=== PATIENT | male | born 1950 | race Caucasian/White ===

== ENCOUNTER → 2024-07-03 10:36 | Outpatient (CLI) | payer MEDICARE, OTHER, SELFPAY ==
--- NOTE | 2024-07-03 10:38 | DI.RAD.S_ITS ---
PROCEDURE: FL FLUOROSCOPY >1HR COMPARISON: CT chest dated 03/03/2024. INDICATIONS: sniff test; assess for diaphragm dysfunction TECHNIQUE: Limited ornamental metal erector radiograph was obtained with the patient upright. With the patient standing, frontal fluoroscopy of the diaphragm at rest breathing quietly through an open mouth and then taking few quick short breasts with a closed mouth causing rapid inspiration was performed. Fluoroscopic time: Please see tech notes FINDINGS Unremarkable motion of the diaphragm during inspiration, expiration. Both diaphragms move together. No evidence of paradoxical motion. Motion during quiet breathing and deep breathing appears unremarkable. IMPRESSION: Unremarkable sniff test. Dictated by: Tahir Chang M.D. on 07/06/2024 at 15:22 Approved by: Tahir Chang M.D. on 07/06/2024 at 15:33
== END ==
LOC: RAD 10:38
PROVIDERS: PCP Nurse Practitioner; Referring Provider Internal Medicine; Visit Provider Internal Medicine
DX: R06.02 Shortness of breath (principal)
CPT/HCPCS: 76000

== ENCOUNTER → 2024-09-14 09:06 | Outpatient (CLI) | payer MEDICARE, OTHER, SELFPAY ==
--- NOTE | 2024-09-14 17:27 | DI.NM.S_ITS ---
DATE OF SERVICE: 09/14/2024 NUCLEAR CARDIOLOGY MYOCARDIAL PERFUSION STUDY PROCEDURE PERFORMED: Exercise treadmill stress and rest myocardial perfusion imaging study with gating to assess ejection fraction and regional wall motion. ORDERING PROVIDER: Jaye Malloy M.D. INDICATIONS: The patient is a 74-year-old male with progressive exertional dyspnea. CARDIAC STRESS: The patient was able to exercise for 4 minutes 42 seconds on a standard Kelvin protocol suggesting moderately reduced exercise capacity with DEWAYNE of +20%, achieving 7.0 METS. He had a normal heart rate response to exercise, achieving a maximum heart rate of 131 BPM (90% of his predicted maximum). He had a borderline hypertensive blood pressure response with a resting blood pressure of 130/64, increasing to a maximum of 200/80. He had no chest discomfort or other anginal symptoms except for exertional dyspnea. His resting ECG shows sinus rhythm with a left anterior fascicular block and incomplete right bundle branch block but normal ST segments. There are no significant ST-segment shifts or arrhythmias with stress. At 3 minutes 40 seconds of exercise, at a heart rate of 124 bpm, 25.7 mCi of Tc99m Myoview was injected and the patient scanned 15 minutes later using a gated SPECT acquisition protocol. Earlier in the day while at rest, he was injected with 12.4 mCi of Tc99m Myoview and scanned 15 minutes later, again using a gated SPECT acquisition protocol. FINDINGS: 1. Raw data: There is good myocardial tracer uptake. The lung/heart ratio is normal at 0.29 with a normal TID ratio of 0.94. 2. Quantitated gated SPECT: Post-stress ejection fraction is estimated at 69% without any focal wall motion abnormality. Mildly increased tracer uptake in the right ventricular free wall is noted which can be an indication of a right ventricular overload condition. The resting ejection fraction is 73% with a normal resting end-diastolic volume of 96 mL. 3. Myocardial perfusion imaging: Post-stress supine images show a normal myocardial perfusion pattern without any perfusion defects, supported by normal perfusion imaging in the prone position. The resting images show an identical perfusion pattern without any areas of improvement. IMPRESSION: 1. Normal myocardial perfusion study for ischemia. 2. No evidence of myocardial ischemia or previous myocardial infarction. 3. Normal left ventricular size and systolic function without focal wall motion abnormality. There is mildly increased tracer uptake within the right ventricular free wall which can be a sign of a right ventricular overload condition but clinical correlation is needed. 4. Moderately reduced exercise capacity without angina or ECG evidence of ischemia. There were no arrhythmias. Jatinder Cochran - IDA/edis/SOTERO doc#: [id number]/job#: [id number] dd: 09/14/2024 16:45:00 dt: 09/14/2024 17:01:00 DICTATING MD/COPIES TO: Heath Chaudhari MD; Jaye Malloy M.D. COPIES MNE: SUMMER;
== END ==
PROVIDERS: PCP Nurse Practitioner; Referring Provider Internal Medicine; Visit Provider Internal Medicine
DX: R06.02 Shortness of breath (principal)
CPT/HCPCS: 78452; 93017; A9502